=== PATIENT | female | born 1955 | race Caucasian/White ===

== ENCOUNTER 2017-11-08 10:17 | Inpatient (IN) | payer OTHER ==
[~2017-11-08] VITALS: Ht 172.7 cm; Wt 50.0 kg
[~2017-11-08 10:17] MED LIST: ATOR10; CEPH500 PO; CIPR500 PO; DIPATR PO; ESTR.75; LEVSOD150; LEVSOD75; OMEP20ER PO; PARO20; PROM25 PO; RANI150; SUCR1 PO; [UNRECOGNIZED DRUG - CODE]
[2017-11-08] MEDS ORDERED: SYNTHROID112 MCG PO (10:37)
[2017-11-08 11:13] LABS: BASOPHILS ABSOLUTE AUTO 0.05 K/mm3 (0.00-0.23); BASOPHILS PERCENT AUTO 1 % (0-2); EOSINOPHILS ABSOLUTE AUTO 0.05 K/mm3 (0.00-0.68); EOSINOPHILS PERCENT AUTO 1 % (0-6); Hemoglobin 17.4 g/dL (11.5-16.0); IMMATURE GRAN ABSOLUTE AUTO 0.02 K/mm3 (0.00-0.10); IMMATURE GRAN PERCENT AUTO 0 % (0-1); LYMPHOCYTES ABSOLUTE AUTO 2.71 K/mm3 (0.84-5.20); LYMPHOCYTES PERCENT AUTO 27 % (21-46); MONOCYTES ABSOLUTE AUTO 1.07 K/mm3 (0.16-1.47); MONOCYTES PERCENT AUTO 11 % (4-13); Mean Corpuscular HGB 33.8 pg (26.0-34.0); Mean Corpuscular HGB Conc 36.3 g/dL (31.5-36.5); Mean Corpuscular Volume 93 fL (80-100); Mean Platelet Volume 9.9 fL (9.1-12.4); NEUTROPHILS ABSOLUTE AUTO 6.13 K/mm3 (1.96-9.15); NEUTROPHILS PERCENT AUTO 61 % (41-73); Platelet Count 167 K/mm3 (150-400); RDW Coefficient Variation 12.7 % (11.7-14.2); RDW Standard Deviation 43.9 fL (35.1-46.3); Red Blood Cell Count 5.15 M/mm3 (3.80-5.20); White Blood Cell Count 10.03 K/mm3 (4.00-11.30)
[2017-11-08 11:47] LABS: Alanine Aminotransfer (ALT/SGP 24 U/L (12-78); Albumin, Blood 3.7 g/dL (3.4-5.0); Alk Phos 87 U/L (50-136); Anion Gap 10 mmol/L (6-16); Aspartate Aminotrans (AST/SGOT 37 U/L (12-37); Bilirubin, Total 0.8 mg/dL (0.1-1.0); Blood Urea Nitrogen 13 mg/dL (8-24); Bun/Creatinine Ratio 15.1 (12.0-20.0); CO2, Blood 24 mmol/L (21-32); Calcium, Blood 8.4 mg/dL (8.5-10.1); Chloride, Blood 99 mmol/L (98-108); Creatinine, Blood 0.86 mg/dL (0.40-1.00); Globulin, Blood 3.6 g/dL (2.2-4.0); Glomerular Filtration Rate >60 (60-); Glucose, Blood 115 mg/dL (70-99); Potassium, Blood 3.4 mmol/L (3.5-5.5); Sodium, Blood 133 mmol/L (136-145); Total Protein, Blood 7.3 g/dL (6.4-8.2)
[2017-11-08 11:55] LABS: Troponin I 0.907 ng/mL (0.000-0.040)
[2017-11-08] MEDS ORDERED: Omeprazole20 M1 PO (13:26)
[2017-11-08 13:45] LABS: International Normalized Ratio 1.04; Prothrombin Time Results 10.8 Sec (9.7-11.5)
[2017-11-08 14:07] LABS: CHOL/HDL RATIO 6.2; Cholesterol 236 mg/dL (50-200); HDL Cholesterol 38 mg/dL (>39); LDL/HDL RATIO 4.3; Low Density Lipoprotein Chol 162 mg/dL (0-110); Triglycerides 182 mg/dL (30-160); Very Low Density Lipoprot Chol 36 mg/dL (6-32)
[2017-11-08 15:36] LABS: Magnesium, Blood 1.7 mg/dL (1.6-2.4)
[2017-11-08 15:40] LABS: Thyroid Stimulating Hormone 2.7 uIU/mL (0.360-4.800)
[2017-11-09 02:41] LABS: BASOPHILS PERCENT AUTO 0 % (0-2); EOSINOPHILS PERCENT AUTO 0 % (0-6); Hematocrit 41.5 % (33.0-51.0); Hemoglobin 14.8 g/dL (11.5-16.0); IMMATURE GRAN ABSOLUTE AUTO 0.02 K/mm3 (0.00-0.10); IMMATURE GRAN PERCENT AUTO 0 % (0-1); LYMPHOCYTES ABSOLUTE AUTO 0.86 K/mm3 (0.84-5.20); LYMPHOCYTES PERCENT AUTO 11 % (21-46); MONOCYTES ABSOLUTE AUTO 0.13 K/mm3 (0.16-1.47); MONOCYTES PERCENT AUTO 2 % (4-13); Mean Corpuscular HGB 33.7 pg (26.0-34.0); Mean Corpuscular HGB Conc 35.7 g/dL (31.5-36.5); Mean Corpuscular Volume 95 fL (80-100); Mean Platelet Volume 10.1 fL (9.1-12.4); NEUTROPHILS ABSOLUTE AUTO 6.81 K/mm3 (1.96-9.15); NEUTROPHILS PERCENT AUTO 87 % (41-73); Platelet Count 153 K/mm3 (150-400); RDW Coefficient Variation 13.2 % (11.7-14.2); RDW Standard Deviation 46.3 fL (35.1-46.3); Red Blood Cell Count 4.39 M/mm3 (3.80-5.20); White Blood Cell Count 7.82 K/mm3 (4.00-11.30)
[2017-11-09 02:56] LABS: Albumin, Blood 3.2 g/dL (3.4-5.0); Anion Gap 7 mmol/L (6-16); Blood Urea Nitrogen 14 mg/dL (8-24); Bun/Creatinine Ratio 18.2 (12.0-20.0); CO2, Blood 20 mmol/L (21-32); Calcium, Blood 7.7 mg/dL (8.5-10.1); Chloride, Blood 109 mmol/L (98-108); Creatinine, Blood 0.77 mg/dL (0.40-1.00); Glomerular Filtration Rate >60 (60-); Glucose, Blood 155 mg/dL (70-99); Phosphorus, Blood 2.7 mg/dL (2.5-4.9); Potassium, Blood 5.1 mmol/L (3.5-5.5); Sodium, Blood 136 mmol/L (136-145)
[2017-11-10 04:43] LABS: Anion Gap 10 mmol/L (6-16); Blood Urea Nitrogen 19 mg/dL (8-24); Bun/Creatinine Ratio 23.1 (12.0-20.0); CO2, Blood 25 mmol/L (21-32); Calcium, Blood 8.4 mg/dL (8.5-10.1); Chloride, Blood 102 mmol/L (98-108); Creatinine, Blood 0.82 mg/dL (0.40-1.00); Glomerular Filtration Rate >60 (60-); Glucose, Blood 148 mg/dL (70-99); Potassium, Blood 4.5 mmol/L (3.5-5.5); Sodium, Blood 137 mmol/L (136-145)
[2017-11-10] MEDS ORDERED: ASPI81CH PO (11:46)
[2017-11-10] MEDS ORDERED: ATOR80 PO (11:47)
[2017-11-10] MEDS ORDERED: CLOP75 PO (11:48)
[2017-11-10] MEDS ORDERED: GUAIFENESIN ER600 MG PO (11:49)
[2017-11-10] MEDS ORDERED: LOSA25 PO (11:49)
[2017-11-10] MEDS ORDERED: NEBI5 PO (11:50)
[2017-11-10] MEDS ORDERED: TORSE20 PO (11:50)
[2017-11-10] MEDS ORDERED: COMBIVENT RESPIM4 GM INH (11:51)
[2017-11-10] MEDS ORDERED: PRED20 PO (11:52)
== END 2017-11-10 12:37 | disposition home or self-care (01) | DRG 247 ==
LOC: ER 10:17 → PCU 10:18
PROVIDERS: Emergency Medicine; Family Medicine; Internal Medicine; Internal Medicine Cardiovascular Disease
PROC: 4A023N7 Measurement of Cardiac Sampling and Pressure, Left Heart, Percutaneous Approach (ICD-10-PCS; principal; 2017-11-08)
PROC: 027135Z Dilation of Coronary Artery, Two Arteries with Two Drug-eluting Intraluminal Devices, Percutaneous Approach (ICD-10-PCS; 2017-11-08)
PROC: B211YZZ Fluoroscopy of Multiple Coronary Arteries using Other Contrast (ICD-10-PCS; 2017-11-08)
DX: I21.4 Non-ST elevation (NSTEMI) myocardial infarction (principal); J44.1 Chronic obstructive pulmonary disease with (acute) exacerbation; E87.1 Hypo-osmolality and hyponatremia; I51.81 Takotsubo syndrome; I25.110 Atherosclerotic heart disease of native coronary artery with unstable angina pectoris; I10 Essential (primary) hypertension; E03.9 Hypothyroidism, unspecified; F17.210 Nicotine dependence, cigarettes, uncomplicated; E87.6 Hypokalemia; E78.5 Hyperlipidemia, unspecified; I73.9 Peripheral vascular disease, unspecified
CPT/HCPCS: 36415; 71045; 80048; 80053; 80061; 80069; 83735; 83880; 84443; 84484; 85025; 85347; 85610; 85730; 86850; 86900; 86901; 92978; 93005; 93010; 93458; 94640; 94760; 99152; 99153; 99285; C1725; C1753; C1769; C1894; C8929; C9600; J0456; J0696; J1644; J2250; J2270; J2930; J3010; J3475; J7030; J7050; Q9957; Q9967

== ENCOUNTER 2017-11-12 17:29 | Emergency (ER) | payer OTHER ==
[~2017-11-12] VITALS: Ht 172.7 cm; Wt 49.0 kg
[~2017-11-12 17:29] MED LIST changes: +ASPI81CH PO; +ATOR80 PO; +CLOP75 PO; +COMBIVENT RESPIM4 GM INH; +GUAIFENESIN ER600 MG PO; +LOSA25 PO; +NEBI5 PO; +Omeprazole20 M1 PO; +PRED20 PO; +SYNTHROID112 MCG PO; +TORSE20 PO
== END 2017-11-12 18:02 | disposition home or self-care (01) ==
LOC: ER 17:29
DX: S50.12XA Contusion of left forearm, initial encounter (principal); S50.11XA Contusion of right forearm, initial encounter; X58.XXXA Exposure to other specified factors, initial encounter; Z79.899 Other long term (current) drug therapy; Z79.82 Long term (current) use of aspirin; Z79.52 Long term (current) use of systemic steroids; I25.10 Atherosclerotic heart disease of native coronary artery without angina pectoris; F17.200 Nicotine dependence, unspecified, uncomplicated

== ENCOUNTER 2018-03-07 17:17 | Inpatient (IN) | payer OTHER ==
[~2018-03-07] VITALS: Ht 172.7 cm; Wt 46.1 kg
[2018-03-07 17:44] LABS: BASOPHILS ABSOLUTE AUTO 0.02 K/mm3 (0.00-0.23); BASOPHILS PERCENT AUTO 0 % (0-2); EOSINOPHILS PERCENT AUTO 0 % (0-6); Hematocrit 38.2 % (33.0-51.0); Hemoglobin 13.5 g/dL (11.5-16.0); IMMATURE GRAN ABSOLUTE AUTO 0.09 K/mm3 (0.00-0.10); IMMATURE GRAN PERCENT AUTO 0 % (0-1); LYMPHOCYTES ABSOLUTE AUTO 0.99 K/mm3 (0.84-5.20); LYMPHOCYTES PERCENT AUTO 4 % (21-46); MONOCYTES ABSOLUTE AUTO 1.81 K/mm3 (0.16-1.47); MONOCYTES PERCENT AUTO 8 % (4-13); Mean Corpuscular HGB 34.3 pg (26.0-34.0); Mean Corpuscular HGB Conc 35.3 g/dL (31.5-36.5); Mean Corpuscular Volume 97 fL (80-100); NEUTROPHILS ABSOLUTE AUTO 19.51 K/mm3 (1.96-9.15); NEUTROPHILS PERCENT AUTO 87 % (41-73); RDW Coefficient Variation 12.3 % (11.7-14.2); RDW Standard Deviation 44.1 fL (35.1-46.3); Red Blood Cell Count 3.94 M/mm3 (3.80-5.20); White Blood Cell Count 22.42 K/mm3 (4.00-11.30)
[2018-03-07 17:46] LABS: Mean Platelet Volume 10.1 fL (9.1-12.4); Platelet Count 196 K/mm3 (150-400)
[2018-03-07 18:26] LABS: Alanine Aminotransfer (ALT/SGP 21 U/L (12-78); Albumin, Blood 3.6 g/dL (3.4-5.0); Albumin/Globulin Ratio 1.2 (0.8-1.8); Alk Phos 94 U/L (50-136); Anion Gap 14 mmol/L (6-16); Aspartate Aminotrans (AST/SGOT 26 U/L (12-37); Bilirubin, Total 0.9 mg/dL (0.1-1.0); Blood Urea Nitrogen 10 mg/dL (8-24); Bun/Creatinine Ratio 12.6 (12.0-20.0); CO2, Blood 21 mmol/L (21-32); Calcium, Blood 8.4 mg/dL (8.5-10.1); Chloride, Blood 103 mmol/L (98-108); Globulin, Blood 3.1 g/dL (2.2-4.0); Glomerular Filtration Rate >60 (60-); Glucose, Blood 147 mg/dL (70-99); Salicylate 4.1 mg/dL (2.8-20.0); Sodium, Blood 138 mmol/L (136-145); Total Protein, Blood 6.7 g/dL (6.4-8.2); Troponin I 0.092 ng/mL (0.000-0.040)
[2018-03-07 18:41] LABS: Ethanol (Alcohol), Blood, Med <3 mg/dL
[2018-03-07 18:42] LABS: Acetaminophen, Random <2.0 ug/mL (10.0-30.0)
[2018-03-07 19:58] LABS: Source, Urine Catheter
[2018-03-07 20:00] LABS: Bilirubin, Urine Neg (Neg); Blood, Urine 2+ (Neg); Glucose Qualitative, Urine 2+ (Neg); Ketones, Urine 1+ (Neg); Leukocyte Esterase, Urine Neg (Neg); Nitrite, Urine Neg (Neg); Protein, Urine 2+ (Neg); Urobilinogen, Urine NORM (Normal)
[2018-03-07 20:03] LABS: Appearance, Urine Hazy (Clear); Color, Urine Yellow (P-Yellow)
[2018-03-07 20:11] LABS: U Amphetamine Screen Not Detected; U Barbituate Screen Not Detected; U Benzodiazapine Screen Not Detected; U Buprenorphine Screen Not Detected; U Cannabinoids Screen DETECTED; U Cocaine Screen Not Detected; U Methadone Screen Not Detected; U Methamphetamine Screen Not Detected; U Opiates Screen Not Detected; U Oxycodone Screen Not Detected; U Phencyclidine Screen Not Detected; U Propoxyphene Screen Not Detected
[2018-03-07 20:16] LABS: Bacteria Not Seen /hpf; Mucus Light (0-Heavy); Squamous Epithelial Cells Few /hpf (Few); White Blood Cells, Urine 0-2 /hpf (0-5)
[2018-03-07] MEDS ORDERED: METO25 PO (20:25)
[2018-03-08 02:21] LABS: Hematocrit 31.9 % (33.0-51.0); Hemoglobin 11.3 g/dL (11.5-16.0); Mean Corpuscular HGB Conc 35.4 g/dL (31.5-36.5); Mean Corpuscular Volume 96 fL (80-100); Mean Platelet Volume 10.2 fL (9.1-12.4); Platelet Count 155 K/mm3 (150-400); RDW Coefficient Variation 12.5 % (11.7-14.2); RDW Standard Deviation 43.7 fL (35.1-46.3); Red Blood Cell Count 3.32 M/mm3 (3.80-5.20); White Blood Cell Count 15.13 K/mm3 (4.00-11.30)
[2018-03-08 03:31] LABS: Alanine Aminotransfer (ALT/SGP 18 U/L (12-78); Alk Phos 75 U/L (50-136); Anion Gap 11 mmol/L (6-16); Aspartate Aminotrans (AST/SGOT 33 U/L (12-37); Bilirubin, Total 0.5 mg/dL (0.1-1.0); Blood Urea Nitrogen 11 mg/dL (8-24); Bun/Creatinine Ratio 14.9 (12.0-20.0); CO2, Blood 22 mmol/L (21-32); Calcium, Blood 7.6 mg/dL (8.5-10.1); Chloride, Blood 106 mmol/L (98-108); Creatinine, Blood 0.74 mg/dL (0.40-1.00); Globulin, Blood 2.9 g/dL (2.2-4.0); Glomerular Filtration Rate >60 (60-); Glucose, Blood 120 mg/dL (70-99); Potassium, Blood 4.1 mmol/L (3.5-5.5); Sodium, Blood 139 mmol/L (136-145); Total Protein, Blood 5.9 g/dL (6.4-8.2)
[2018-03-08 03:33] LABS: Troponin I 0.113 ng/mL (0.000-0.040)
[2018-03-08 03:46] LABS: Creatine Kinase MB 4.5 ng/mL (0.0-3.6); Creatine Kinase MB Index 0.5 (0.0-4.0)
[2018-03-08 10:28] LABS: Troponin I 0.096 ng/mL (0.000-0.040)
[2018-03-08 11:05] LABS: Creatine Kinase MB 5.5 ng/mL (0.0-3.6); Creatine Kinase MB Index 0.4 (0.0-4.0)
[2018-03-09 05:29] LABS: BASOPHILS ABSOLUTE AUTO 0.04 K/mm3 (0.00-0.23); BASOPHILS PERCENT AUTO 0 % (0-2); EOSINOPHILS ABSOLUTE AUTO 0.02 K/mm3 (0.00-0.68); EOSINOPHILS PERCENT AUTO 0 % (0-6); Hematocrit 28.4 % (33.0-51.0); Hemoglobin 10.1 g/dL (11.5-16.0); IMMATURE GRAN ABSOLUTE AUTO 0.07 K/mm3 (0.00-0.10); IMMATURE GRAN PERCENT AUTO 0 % (0-1); LYMPHOCYTES ABSOLUTE AUTO 1.43 K/mm3 (0.84-5.20); LYMPHOCYTES PERCENT AUTO 9 % (21-46); MONOCYTES ABSOLUTE AUTO 1.74 K/mm3 (0.16-1.47); MONOCYTES PERCENT AUTO 11 % (4-13); Mean Corpuscular HGB 34.6 pg (26.0-34.0); Mean Corpuscular HGB Conc 35.6 g/dL (31.5-36.5); Mean Corpuscular Volume 97 fL (80-100); Mean Platelet Volume 9.9 fL (9.1-12.4); NEUTROPHILS ABSOLUTE AUTO 13.32 K/mm3 (1.96-9.15); NEUTROPHILS PERCENT AUTO 80 % (41-73); Platelet Count 133 K/mm3 (150-400); RDW Coefficient Variation 12.5 % (11.7-14.2); RDW Standard Deviation 44.5 fL (35.1-46.3); Red Blood Cell Count 2.92 M/mm3 (3.80-5.20); White Blood Cell Count 16.62 K/mm3 (4.00-11.30)
[2018-03-09 05:53] LABS: Albumin, Blood 2.8 g/dL (3.4-5.0); Anion Gap 10 mmol/L (6-16); Blood Urea Nitrogen 10 mg/dL (8-24); Bun/Creatinine Ratio 17.7 (12.0-20.0); CO2, Blood 24 mmol/L (21-32); Calcium, Blood 7.3 mg/dL (8.5-10.1); Chloride, Blood 104 mmol/L (98-108); Creatinine, Blood 0.57 mg/dL (0.40-1.00); Glomerular Filtration Rate >60 (60-); Glucose, Blood 94 mg/dL (70-99); Phosphorus, Blood 2.2 mg/dL (2.5-4.9); Potassium, Blood 3.8 mmol/L (3.5-5.5); Sodium, Blood 138 mmol/L (136-145)
[2018-03-09 06:17] LABS: CPK Creatine Kinase 1222 U/L (26-193)
[2018-03-09 16:00] LABS: PCO2 Arterial 33.3 mmHg (35-45); pH Blood Arterial 7.45 (7.35-7.45)
[2018-03-09 16:03] LABS: PO2 Arterial 46.2 mmHg (80-100)
[2018-03-09 17:49] LABS: PCO2 Arterial 33 mmHg (35-45); PO2 Arterial 78 mmHg (80-100); pH Blood Arterial 7.46 (7.35-7.45)
[2018-03-10 04:51] LABS: BASOPHILS ABSOLUTE AUTO 0.03 K/mm3 (0.00-0.23); BASOPHILS PERCENT AUTO 0 % (0-2); EOSINOPHILS ABSOLUTE AUTO 0.02 K/mm3 (0.00-0.68); EOSINOPHILS PERCENT AUTO 0 % (0-6); Hematocrit 28.2 % (33.0-51.0); Hemoglobin 9.9 g/dL (11.5-16.0); IMMATURE GRAN ABSOLUTE AUTO 0.09 K/mm3 (0.00-0.10); IMMATURE GRAN PERCENT AUTO 1 % (0-1); LYMPHOCYTES ABSOLUTE AUTO 1.13 K/mm3 (0.84-5.20); LYMPHOCYTES PERCENT AUTO 8 % (21-46); MONOCYTES ABSOLUTE AUTO 1.53 K/mm3 (0.16-1.47); MONOCYTES PERCENT AUTO 10 % (4-13); Mean Corpuscular HGB 34.1 pg (26.0-34.0); Mean Corpuscular HGB Conc 35.1 g/dL (31.5-36.5); Mean Corpuscular Volume 97 fL (80-100); Mean Platelet Volume 10.7 fL (9.1-12.4); NEUTROPHILS ABSOLUTE AUTO 12.33 K/mm3 (1.96-9.15); NEUTROPHILS PERCENT AUTO 82 % (41-73); Platelet Count 125 K/mm3 (150-400); RDW Coefficient Variation 12.3 % (11.7-14.2); White Blood Cell Count 15.13 K/mm3 (4.00-11.30)
[2018-03-10 05:21] LABS: Albumin, Blood 2.5 g/dL (3.4-5.0); Anion Gap 11 mmol/L (6-16); Blood Urea Nitrogen 10 mg/dL (8-24); Bun/Creatinine Ratio 15.8 (12.0-20.0); CO2, Blood 25 mmol/L (21-32); Calcium, Blood 7.5 mg/dL (8.5-10.1); Chloride, Blood 100 mmol/L (98-108); Creatinine, Blood 0.63 mg/dL (0.40-1.00); Glomerular Filtration Rate >60 (60-); Glucose, Blood 102 mg/dL (70-99); Potassium, Blood 3.4 mmol/L (3.5-5.5); Sodium, Blood 136 mmol/L (136-145)
[2018-03-10 05:22] LABS: Percent Saturation 11.7 % (15.0-50.0)
[2018-03-10 05:50] LABS: CPK Creatine Kinase 1159 U/L (26-193)
[2018-03-11 04:29] LABS: BASOPHILS ABSOLUTE AUTO 0.02 K/mm3 (0.00-0.23); BASOPHILS PERCENT AUTO 0 % (0-2); EOSINOPHILS ABSOLUTE AUTO 0.02 K/mm3 (0.00-0.68); EOSINOPHILS PERCENT AUTO 0 % (0-6); Hematocrit 24.7 % (33.0-51.0); Hemoglobin 8.7 g/dL (11.5-16.0); IMMATURE GRAN ABSOLUTE AUTO 0.06 K/mm3 (0.00-0.10); IMMATURE GRAN PERCENT AUTO 0 % (0-1); LYMPHOCYTES ABSOLUTE AUTO 0.75 K/mm3 (0.84-5.20); LYMPHOCYTES PERCENT AUTO 6 % (21-46); MONOCYTES ABSOLUTE AUTO 1.23 K/mm3 (0.16-1.47); MONOCYTES PERCENT AUTO 9 % (4-13); Mean Corpuscular HGB 33.1 pg (26.0-34.0); Mean Corpuscular HGB Conc 35.2 g/dL (31.5-36.5); Mean Platelet Volume 10.7 fL (9.1-12.4); NEUTROPHILS ABSOLUTE AUTO 11.29 K/mm3 (1.96-9.15); NEUTROPHILS PERCENT AUTO 85 % (41-73); Platelet Count 141 K/mm3 (150-400); RDW Coefficient Variation 12.1 % (11.7-14.2); RDW Standard Deviation 41.6 fL (35.1-46.3); Red Blood Cell Count 2.63 M/mm3 (3.80-5.20); White Blood Cell Count 13.37 K/mm3 (4.00-11.30)
[2018-03-11 04:30] LABS: Mean Corpuscular Volume 94 fL (80-100)
[2018-03-11 04:47] LABS: Albumin, Blood 2.2 g/dL (3.4-5.0); Anion Gap 9 mmol/L (6-16); Blood Urea Nitrogen 9 mg/dL (8-24); Bun/Creatinine Ratio 14.8 (12.0-20.0); CO2, Blood 29 mmol/L (21-32); Calcium, Blood 7.2 mg/dL (8.5-10.1); Chloride, Blood 94 mmol/L (98-108); Creatinine, Blood 0.61 mg/dL (0.40-1.00); Glomerular Filtration Rate >60 (60-); Glucose, Blood 119 mg/dL (70-99); Phosphorus, Blood 1.4 mg/dL (2.5-4.9); Potassium, Blood 3.2 mmol/L (3.5-5.5); Sodium, Blood 132 mmol/L (136-145)
[2018-03-11 17:45] LABS: Vancomycin, Trough 2.4 ug/mL (5.0-10.0)
[2018-03-12 03:51] LABS: BASOPHILS ABSOLUTE AUTO 0.02 K/mm3 (0.00-0.23); BASOPHILS PERCENT AUTO 0 % (0-2); EOSINOPHILS ABSOLUTE AUTO 0.09 K/mm3 (0.00-0.68); EOSINOPHILS PERCENT AUTO 1 % (0-6); Hematocrit 24.6 % (33.0-51.0); Hemoglobin 8.6 g/dL (11.5-16.0); IMMATURE GRAN ABSOLUTE AUTO 0.05 K/mm3 (0.00-0.10); IMMATURE GRAN PERCENT AUTO 0 % (0-1); LYMPHOCYTES PERCENT AUTO 7 % (21-46); MONOCYTES ABSOLUTE AUTO 0.88 K/mm3 (0.16-1.47); MONOCYTES PERCENT AUTO 7 % (4-13); Mean Corpuscular HGB 33.3 pg (26.0-34.0); Mean Corpuscular Volume 95 fL (80-100); Mean Platelet Volume 10.3 fL (9.1-12.4); NEUTROPHILS ABSOLUTE AUTO 11.36 K/mm3 (1.96-9.15); NEUTROPHILS PERCENT AUTO 85 % (41-73); Platelet Count 156 K/mm3 (150-400); RDW Coefficient Variation 12.3 % (11.7-14.2); RDW Standard Deviation 42.7 fL (35.1-46.3); Red Blood Cell Count 2.58 M/mm3 (3.80-5.20)
[2018-03-12 04:13] LABS: Albumin, Blood 2.2 g/dL (3.4-5.0); Anion Gap 9 mmol/L (6-16); Blood Urea Nitrogen 11 mg/dL (8-24); CO2, Blood 29 mmol/L (21-32); Calcium, Blood 7.5 mg/dL (8.5-10.1); Chloride, Blood 94 mmol/L (98-108); Creatinine, Blood 0.58 mg/dL (0.40-1.00); Glomerular Filtration Rate >60 (60-); Glucose, Blood 155 mg/dL (70-99); Phosphorus, Blood 1.7 mg/dL (2.5-4.9); Potassium, Blood 3.7 mmol/L (3.5-5.5); Sodium, Blood 132 mmol/L (136-145)
[2018-03-12 18:49] LABS: Vancomycin, Trough 7.6 ug/mL (5.0-10.0)
[2018-03-13 04:30] LABS: BASOPHILS ABSOLUTE AUTO 0.05 K/mm3 (0.00-0.23); BASOPHILS PERCENT AUTO 0 % (0-2); EOSINOPHILS ABSOLUTE AUTO 0.35 K/mm3 (0.00-0.68); EOSINOPHILS PERCENT AUTO 3 % (0-6); Hematocrit 24.9 % (33.0-51.0); Hemoglobin 8.5 g/dL (11.5-16.0); IMMATURE GRAN ABSOLUTE AUTO 0.07 K/mm3 (0.00-0.10); IMMATURE GRAN PERCENT AUTO 1 % (0-1); LYMPHOCYTES ABSOLUTE AUTO 1.48 K/mm3 (0.84-5.20); LYMPHOCYTES PERCENT AUTO 11 % (21-46); MONOCYTES PERCENT AUTO 9 % (4-13); Mean Corpuscular HGB 33.2 pg (26.0-34.0); Mean Corpuscular HGB Conc 34.1 g/dL (31.5-36.5); Mean Corpuscular Volume 97 fL (80-100); NEUTROPHILS ABSOLUTE AUTO 10.76 K/mm3 (1.96-9.15); NEUTROPHILS PERCENT AUTO 77 % (41-73); Platelet Count 251 K/mm3 (150-400); RDW Coefficient Variation 14.3 % (11.7-14.2); RDW Standard Deviation 48.6 fL (35.1-46.3); Red Blood Cell Count 2.56 M/mm3 (3.80-5.20); White Blood Cell Count 13.91 K/mm3 (4.00-11.30)
[2018-03-13 05:57] LABS: Albumin, Blood 2.1 g/dL (3.4-5.0); Anion Gap 8 mmol/L (6-16); Blood Urea Nitrogen 12 mg/dL (8-24); Bun/Creatinine Ratio 18.5 (12.0-20.0); CO2, Blood 30 mmol/L (21-32); Calcium, Blood 7.5 mg/dL (8.5-10.1); Chloride, Blood 97 mmol/L (98-108); Creatinine, Blood 0.65 mg/dL (0.40-1.00); Glomerular Filtration Rate >60 (60-); Glucose, Blood 107 mg/dL (70-99); Phosphorus, Blood 2.4 mg/dL (2.5-4.9); Potassium, Blood 3.9 mmol/L (3.5-5.5); Sodium, Blood 135 mmol/L (136-145)
[2018-03-13 18:41] LABS: Vancomycin, Trough 12.9 ug/mL (5.0-10.0)
[2018-03-14 05:20] LABS: BASOPHILS ABSOLUTE AUTO 0.04 K/mm3 (0.00-0.23); BASOPHILS PERCENT AUTO 0 % (0-2); EOSINOPHILS ABSOLUTE AUTO 0.54 K/mm3 (0.00-0.68); EOSINOPHILS PERCENT AUTO 4 % (0-6); Hematocrit 25.1 % (33.0-51.0); Hemoglobin 8.6 g/dL (11.5-16.0); IMMATURE GRAN PERCENT AUTO 1 % (0-1); LYMPHOCYTES ABSOLUTE AUTO 1.04 K/mm3 (0.84-5.20); LYMPHOCYTES PERCENT AUTO 8 % (21-46); MONOCYTES PERCENT AUTO 10 % (4-13); Mean Corpuscular HGB 34.1 pg (26.0-34.0); Mean Corpuscular HGB Conc 34.3 g/dL (31.5-36.5); Mean Platelet Volume 9.8 fL (9.1-12.4); NEUTROPHILS ABSOLUTE AUTO 9.44 K/mm3 (1.96-9.15); NEUTROPHILS PERCENT AUTO 76 % (41-73); Platelet Count 243 K/mm3 (150-400); RDW Coefficient Variation 12.9 % (11.7-14.2); RDW Standard Deviation 46.2 fL (35.1-46.3); Red Blood Cell Count 2.52 M/mm3 (3.80-5.20); White Blood Cell Count 12.36 K/mm3 (4.00-11.30)
[2018-03-14 05:21] LABS: Mean Corpuscular Volume 100 fL (80-100)
[2018-03-14 05:38] LABS: Albumin, Blood 2.2 g/dL (3.4-5.0); Anion Gap 6 mmol/L (6-16); Blood Urea Nitrogen 11 mg/dL (8-24); Bun/Creatinine Ratio 16.6 (12.0-20.0); CO2, Blood 31 mmol/L (21-32); Calcium, Blood 7.8 mg/dL (8.5-10.1); Chloride, Blood 97 mmol/L (98-108); Creatinine, Blood 0.66 mg/dL (0.40-1.00); Glomerular Filtration Rate >60 (60-); Glucose, Blood 128 mg/dL (70-99); Phosphorus, Blood 3.2 mg/dL (2.5-4.9); Potassium, Blood 4.6 mmol/L (3.5-5.5); Sodium, Blood 134 mmol/L (136-145)
[2018-03-15 04:44] LABS: BASOPHILS ABSOLUTE AUTO 0.08 K/mm3 (0.00-0.23); BASOPHILS PERCENT AUTO 1 % (0-2); EOSINOPHILS ABSOLUTE AUTO 0.72 K/mm3 (0.00-0.68); EOSINOPHILS PERCENT AUTO 4 % (0-6); Hematocrit 28.5 % (33.0-51.0); Hemoglobin 9.6 g/dL (11.5-16.0); Mean Corpuscular HGB 33.9 pg (26.0-34.0); Mean Corpuscular HGB Conc 33.7 g/dL (31.5-36.5); Mean Corpuscular Volume 101 fL (80-100); Mean Platelet Volume 9.7 fL (9.1-12.4); NRBC ABSOLUTE 0.02 K/mm3 (0.00-0.02); NRBC Auto 0.1 /100 WBC (0.0-0.2); Platelet Count 365 K/mm3 (150-400); RDW Coefficient Variation 13.2 % (11.7-14.2); RDW Standard Deviation 46.5 fL (35.1-46.3); Red Blood Cell Count 2.83 M/mm3 (3.80-5.20); White Blood Cell Count 16.76 K/mm3 (4.00-11.30)
[2018-03-15 04:46] LABS: IMMATURE GRAN ABSOLUTE AUTO 0.16 K/mm3 (0.00-0.10); IMMATURE GRAN PERCENT AUTO 1 % (0-1); LYMPHOCYTES ABSOLUTE AUTO 2.13 K/mm3 (0.84-5.20); LYMPHOCYTES PERCENT AUTO 13 % (21-46); MONOCYTES ABSOLUTE AUTO 1.82 K/mm3 (0.16-1.47); MONOCYTES PERCENT AUTO 11 % (4-13); NEUTROPHILS ABSOLUTE AUTO 11.85 K/mm3 (1.96-9.15); NEUTROPHILS PERCENT AUTO 71 % (41-73)
[2018-03-15 05:06] LABS: Albumin, Blood 2.6 g/dL (3.4-5.0); Anion Gap 9 mmol/L (6-16); Blood Urea Nitrogen 12 mg/dL (8-24); Bun/Creatinine Ratio 18.9 (12.0-20.0); CO2, Blood 28 mmol/L (21-32); Calcium, Blood 8.4 mg/dL (8.5-10.1); Chloride, Blood 96 mmol/L (98-108); Creatinine, Blood 0.64 mg/dL (0.40-1.00); Glomerular Filtration Rate >60 (60-); Glucose, Blood 106 mg/dL (70-99); Phosphorus, Blood 3.9 mg/dL (2.5-4.9); Potassium, Blood 4.1 mmol/L (3.5-5.5); Sodium, Blood 133 mmol/L (136-145)
[2018-03-15 17:40] LABS: Vancomycin, Trough 17.9 ug/mL (5.0-10.0)
[2018-03-16 05:25] LABS: Hematocrit 26.5 % (33.0-51.0); Mean Corpuscular HGB 34.7 pg (26.0-34.0); Mean Corpuscular Volume 102 fL (80-100); Mean Platelet Volume 9.5 fL (9.1-12.4); NRBC ABSOLUTE 0.02 K/mm3 (0.00-0.02); NRBC Auto 0.2 /100 WBC (0.0-0.2); Platelet Count 368 K/mm3 (150-400); RDW Coefficient Variation 14.4 % (11.7-14.2); RDW Standard Deviation 48.7 fL (35.1-46.3); Red Blood Cell Count 2.59 M/mm3 (3.80-5.20); White Blood Cell Count 12.66 K/mm3 (4.00-11.30)
[2018-03-16 05:42] LABS: Albumin, Blood 2.4 g/dL (3.4-5.0); Anion Gap 8 mmol/L (6-16); Blood Urea Nitrogen 14 mg/dL (8-24); CO2, Blood 29 mmol/L (21-32); Chloride, Blood 100 mmol/L (98-108); Glomerular Filtration Rate >60 (60-); Glucose, Blood 96 mg/dL (70-99); Phosphorus, Blood 4.4 mg/dL (2.5-4.9); Potassium, Blood 4.1 mmol/L (3.5-5.5); Sodium, Blood 137 mmol/L (136-145)
[2018-03-16 05:51] LABS: BASOPHILS PERCENT MAN 0 % (0-2); EOSINOPHILS ABSOLUTE MAN 0.75 K/mm3 (0.00-0.68); EOSINOPHILS PERCENT MAN 6 % (0-6); LYMPHOCYTES ABSOLUTE MAN 1.51 K/mm3 (0.84-5.20); LYMPHOCYTES PERCENT MAN 12 % (21-46); MONOCYTES ABSOLUTE MAN 0.88 K/mm3 (0.16-1.47); MONOCYTES PERCENT MAN 7 % (4-13); NEUTROPHILS ABSOLUTE MAN 9.49 K/mm3 (1.96-9.15); SEG NEUTROPHILS PERCENT MAN 75 % (41-73); TOTAL CELLS COUNTED 100
[2018-03-18 05:10] LABS: BASOPHILS ABSOLUTE AUTO 0.13 K/mm3 (0.00-0.23); BASOPHILS PERCENT AUTO 1 % (0-2); EOSINOPHILS ABSOLUTE AUTO 0.55 K/mm3 (0.00-0.68); EOSINOPHILS PERCENT AUTO 4 % (0-6); Hematocrit 30.6 % (33.0-51.0); Hemoglobin 10.2 g/dL (11.5-16.0); IMMATURE GRAN ABSOLUTE AUTO 0.23 K/mm3 (0.00-0.10); IMMATURE GRAN PERCENT AUTO 2 % (0-1); LYMPHOCYTES ABSOLUTE AUTO 1.82 K/mm3 (0.84-5.20); LYMPHOCYTES PERCENT AUTO 13 % (21-46); MONOCYTES ABSOLUTE AUTO 1.53 K/mm3 (0.16-1.47); MONOCYTES PERCENT AUTO 11 % (4-13); Mean Corpuscular HGB 34.2 pg (26.0-34.0); Mean Corpuscular HGB Conc 33.3 g/dL (31.5-36.5); Mean Corpuscular Volume 103 fL (80-100); Mean Platelet Volume 9.1 fL (9.1-12.4); NEUTROPHILS ABSOLUTE AUTO 9.31 K/mm3 (1.96-9.15); NEUTROPHILS PERCENT AUTO 69 % (41-73); Platelet Count 464 K/mm3 (150-400); RDW Coefficient Variation 15.9 % (11.7-14.2); RDW Standard Deviation 54.2 fL (35.1-46.3); Red Blood Cell Count 2.98 M/mm3 (3.80-5.20); White Blood Cell Count 13.57 K/mm3 (4.00-11.30)
[2018-03-18 05:38] LABS: Anion Gap 8 mmol/L (6-16); Blood Urea Nitrogen 13 mg/dL (8-24); Bun/Creatinine Ratio 16.6 (12.0-20.0); CO2, Blood 27 mmol/L (21-32); Calcium, Blood 8.1 mg/dL (8.5-10.1); Chloride, Blood 99 mmol/L (98-108); Creatinine, Blood 0.78 mg/dL (0.40-1.00); Glomerular Filtration Rate >60 (60-); Glucose, Blood 88 mg/dL (70-99); Potassium, Blood 3.8 mmol/L (3.5-5.5); Sodium, Blood 134 mmol/L (136-145)
[2018-03-18 21:57] LABS: Vancomycin, Trough 13.9 ug/mL (5.0-10.0)
[2018-03-20 05:00] LABS: BASOPHILS ABSOLUTE AUTO 0.09 K/mm3 (0.00-0.23); BASOPHILS PERCENT AUTO 1 % (0-2); EOSINOPHILS ABSOLUTE AUTO 0.39 K/mm3 (0.00-0.68); EOSINOPHILS PERCENT AUTO 4 % (0-6); Hematocrit 31.2 % (33.0-51.0); Hemoglobin 10.2 g/dL (11.5-16.0); IMMATURE GRAN ABSOLUTE AUTO 0.08 K/mm3 (0.00-0.10); IMMATURE GRAN PERCENT AUTO 1 % (0-1); LYMPHOCYTES PERCENT AUTO 15 % (21-46); MONOCYTES ABSOLUTE AUTO 1.18 K/mm3 (0.16-1.47); MONOCYTES PERCENT AUTO 12 % (4-13); Mean Corpuscular HGB 34.7 pg (26.0-34.0); Mean Corpuscular HGB Conc 32.7 g/dL (31.5-36.5); Mean Platelet Volume 8.8 fL (9.1-12.4); NEUTROPHILS ABSOLUTE AUTO 6.59 K/mm3 (1.96-9.15); NEUTROPHILS PERCENT AUTO 67 % (41-73); Platelet Count 480 K/mm3 (150-400); RDW Coefficient Variation 16.1 % (11.7-14.2); RDW Standard Deviation 60.6 fL (35.1-46.3); Red Blood Cell Count 2.94 M/mm3 (3.80-5.20); White Blood Cell Count 9.83 K/mm3 (4.00-11.30)
[2018-03-20 05:01] LABS: Mean Corpuscular Volume 106 fL (80-100)
[2018-03-20 05:32] LABS: Anion Gap 8 mmol/L (6-16); Blood Urea Nitrogen 15 mg/dL (8-24); Bun/Creatinine Ratio 17.6 (12.0-20.0); CO2, Blood 28 mmol/L (21-32); Calcium, Blood 8.2 mg/dL (8.5-10.1); Chloride, Blood 98 mmol/L (98-108); Creatinine, Blood 0.85 mg/dL (0.40-1.00); Glomerular Filtration Rate >60 (60-); Glucose, Blood 105 mg/dL (70-99); Potassium, Blood 4.1 mmol/L (3.5-5.5); Sodium, Blood 134 mmol/L (136-145)
[2018-03-20 10:50] LABS: Vancomycin, Trough 17.5 ug/mL (5.0-10.0)
[2018-03-20] MEDS ORDERED: ACET325 PO (11:55)
[2018-03-20] MEDS ORDERED: Nicotine Patch1 EAC5 TD (11:56)
[2018-03-20] MEDS ORDERED: TRAM50 PO (11:57)
[2018-03-20] MEDS ORDERED: ALBU2.5V5 NEB (11:58)
[2018-03-20] MEDS ORDERED: FAMO40 PO (11:58)
== END 2018-03-20 14:00 | DRG 956 ==
LOC: ER 17:17 → SURS 19:54 → PCU 19:54 → SURS 20:39 → PCU 03-09 15:21 → MEDS 03-13 18:00 → ENPENDDIS 03-20 07:13 → EDPENDDIS 03-20 07:13 → MEDS 03-20 14:00
PROVIDERS: Emergency Medicine; Family Medicine; Internal Medicine; Internal Medicine Critical Care Medicine; Orthopaedic Surgery
PROC: 0QS604Z Reposition Right Upper Femur with Internal Fixation Device, Open Approach (ICD-10-PCS; principal; 2018-03-09 12:30)
DX: S72.141A Displaced intertrochanteric fracture of right femur, initial encounter for closed fracture (principal); T79.1XXA Fat embolism (traumatic), initial encounter; J95.821 Acute postprocedural respiratory failure; G92 Toxic encephalopathy; E87.2 Acidosis; J81.1 Chronic pulmonary edema; R64 Cachexia; Z68.1 Body mass index [BMI] 19.9 or less, adult; E86.0 Dehydration; Z87.890 Personal history of sex reassignment; F17.210 Nicotine dependence, cigarettes, uncomplicated; E04.9 Nontoxic goiter, unspecified; I25.2 Old myocardial infarction; E03.9 Hypothyroidism, unspecified; R29.6 Repeated falls; R53.81 Other malaise; Z95.5 Presence of coronary angioplasty implant and graft; I25.10 Atherosclerotic heart disease of native coronary artery without angina pectoris; K21.9 Gastro-esophageal reflux disease without esophagitis; D72.829 Elevated white blood cell count, unspecified; D64.9 Anemia, unspecified; D69.6 Thrombocytopenia, unspecified; I10 Essential (primary) hypertension; W18.30XA Fall on same level, unspecified, initial encounter; Y92.002 Bathroom of unspecified non-institutional (private) residence as the place of occurrence of the external cause; M26.82 Posterior soft tissue impingement; E83.39 Other disorders of phosphorus metabolism; R74.8 Abnormal levels of other serum enzymes; S70.11XA Contusion of right thigh, initial encounter; J43.9 Emphysema, unspecified; I67.9 Cerebrovascular disease, unspecified; J47.9 Bronchiectasis, uncomplicated; R26.89 Other abnormalities of gait and mobility; Z79.82 Long term (current) use of aspirin
CPT/HCPCS: 36415; 36600; 51702; 70450; 71045; 71046; 71260; 73502; 80048; 80053; 80069; 80202; 81001; 82140; 82550; 82553; 82607; 82728; 82746; 82803; 83540; 83550; 83605; 83880; 84145; 84484; 85025; 85027; 87040; 87070; 87205; 93005; 93010; 93308; 93321; 94640; 94667; 94760; 94762; 96361; 96365; 96375; 96376; 97110; 97116; 97161; 97166; 97530; 97535; 99285-25; C1713; C1751; C1769; G0480; G8978; G8979; G8987; G8988; J0330; J0360; J0456; J0696; J1170; J1650; J1940; J2250; J2370; J2405; J2543; J3010; J3370; J7030; J7040; J7050; J7060; J7120; Q9967

== ENCOUNTER 2018-07-17 10:06 | Inpatient (IN) | payer OTHER ==
[~2018-07-17] VITALS: Ht 180.3 cm; Wt 54.4 kg
[~2018-07-17 10:06] MED LIST changes: +ACET325 PO; +ALBU2.5V5 NEB; +FAMO40 PO; +METO25 PO; +Nicotine Patch1 EAC5 TD; +TRAM50 PO
[2018-07-17 10:42] LABS: BASOPHILS ABSOLUTE AUTO 0.11 K/mm3 (0.00-0.23); BASOPHILS PERCENT AUTO 1 % (0-2); EOSINOPHILS ABSOLUTE AUTO 0.03 K/mm3 (0.00-0.68); EOSINOPHILS PERCENT AUTO 0 % (0-6); Hemoglobin 15.6 g/dL (11.5-16.0); IMMATURE GRAN ABSOLUTE AUTO 0.14 K/mm3 (0.00-0.10); IMMATURE GRAN PERCENT AUTO 1 % (0-1); LYMPHOCYTES ABSOLUTE AUTO 1.74 K/mm3 (0.84-5.20); LYMPHOCYTES PERCENT AUTO 12 % (21-46); MONOCYTES ABSOLUTE AUTO 0.78 K/mm3 (0.16-1.47); MONOCYTES PERCENT AUTO 6 % (4-13); Mean Corpuscular HGB 33.9 pg (26.0-34.0); Mean Corpuscular HGB Conc 33.2 g/dL (31.5-36.5); Mean Corpuscular Volume 102 fL (80-100); Mean Platelet Volume 9.4 fL (9.1-12.4); NEUTROPHILS ABSOLUTE AUTO 11.34 K/mm3 (1.96-9.15); NEUTROPHILS PERCENT AUTO 80 % (41-73); Platelet Count 253 K/mm3 (150-400); RDW Coefficient Variation 13.3 % (11.7-14.2); RDW Standard Deviation 50.7 fL (35.1-46.3); White Blood Cell Count 14.14 K/mm3 (4.00-11.30)
[2018-07-17 10:44] LABS: Alanine Aminotransfer (ALT/SGP 13 U/L (12-78); Albumin, Blood 3.7 g/dL (3.4-5.0); Alk Phos 108 U/L (50-136); Anion Gap 21 mmol/L (6-16); Aspartate Aminotrans (AST/SGOT 24 U/L (12-37); Bilirubin, Total 0.5 mg/dL (0.1-1.0); Blood Urea Nitrogen 14 mg/dL (8-24); Bun/Creatinine Ratio 14.7 (12.0-20.0); CO2, Blood 11 mmol/L (21-32); Calcium, Blood 8.4 mg/dL (8.5-10.1); Chloride, Blood 103 mmol/L (98-108); Creatinine, Blood 0.95 mg/dL (0.40-1.00); Ethanol (Alcohol), Blood, Med <3 mg/dL; Globulin, Blood 3.7 g/dL (2.2-4.0); Glomerular Filtration Rate 55 (60-); Glucose, Blood 157 mg/dL (70-99); Potassium, Blood 4.1 mmol/L (3.5-5.5); Prothrombin Time Results 10.6 Sec (9.7-11.5); Sodium, Blood 135 mmol/L (136-145); Total Protein, Blood 7.4 g/dL (6.4-8.2)
[2018-07-17 11:19] LABS: PO2 Arterial 21.9 mmHg (80-100); pH Blood Arterial 7.26 (7.35-7.45)
--- NOTE | 2018-07-17 12:55 | NUR ---
REPORT FROM DOUGLAS AGUILERA. CONFUSED, RESTRAINED PATIENT BEING ADMITTED TO ICU 6
[2018-07-17 12:56] LABS: Source, Urine Catheter
[2018-07-17 12:57] LABS: Bilirubin, Urine Neg (Neg); Blood, Urine 3+ (Neg); Glucose Qualitative, Urine Neg (Neg); Ketones, Urine 1+ (Neg); Leukocyte Esterase, Urine Neg (Neg); Nitrite, Urine Neg (Neg); Protein, Urine Neg (Neg); Specific Gravity, Urine 1.015 (1.003-1.022); Urobilinogen, Urine NORM (Normal); pH, Urine 6.5 (5.0-8.0)
[2018-07-17 13:17] LABS: Appearance, Urine Hazy (Clear); Color, Urine Yellow (P-Yellow)
[2018-07-17 13:18] LABS: Squamous Epithelial Cells Rare /hpf (Few)
[2018-07-17 13:19] LABS: Bacteria Few /hpf; White Blood Cells, Urine 0-2 /hpf (0-5)
[2018-07-17 13:19] LABS: U Amphetamine Screen Not Detected; U Barbituate Screen Not Detected; U Benzodiazapine Screen Not Detected; U Buprenorphine Screen Not Detected; U Cannabinoids Screen DETECTED; U Cocaine Screen Not Detected; U Methadone Screen Not Detected; U Methamphetamine Screen Not Detected; U Opiates Screen Not Detected; U Oxycodone Screen Not Detected; U Phencyclidine Screen Not Detected; U Propoxyphene Screen Not Detected
[2018-07-17 13:20] LABS: Mucus Light (0-Heavy)
--- NOTE | 2018-07-17 13:49 | NUR ---
CACHECTIC LYNNE, FEMALE ADMITTED TO ICU 6. NOT RESPONDING TO QUESTIONS, BUT ATTEMPTS TO PULL LINES AND TUBES. BILAT SWR AND DADA VEST ON. TEMPERATURE PANG WITH CLEAR URINE.
--- NOTE | 2018-07-17 15:41 | NUR ---
NYA Bertrand CALLED AND WILL BRING IN COPY OF CONSULTING PRACTICE MANAGER'S LICENSE
--- NOTE | 2018-07-17 16:19 | NUR ---
RECEIVED REPORT FROM BRANDI HUGHES RN, ASSUMED CARE, PATIENT IS UNABLE TO ANSWER QUESTIONS, AGITATED AND RESTLESS, UNABLE TO FOLLOW COMMANDS IN RESTRAINTS AT THIS TIME, PANG CATHETER IN PLACE, PIV IN L UA, PATIENT REMOVED PIV FROM R AC, PATIENT'S ROOM MATE/LIFE PARTNER EN ROUTE WITH POSITIVE ID, PATIENT RECEIVED BATH AND LINEN CHANGE, PATIENT HAS NS AT 150 CC/HYR INFUSING, CALL LIGHT IN REACH, WILL CONTINUE TO MONITOR.
--- NOTE | 2018-07-17 17:50 | NUR ---
SHIFT SUMMARY NOTE: PATIENT IS RESTING COMFORTABLY WITH EYES CLOSED, OPENEND EYES WHEN SIGNIFICANT OTHER WAS AT BEDSIDE, PATIENT RECEIVED 2 MG ATIVAN IV AFTER BECOMING EXTREMELY AGITATED AND PULLING HER PIVs, TRYING TO CLIMB OUT OF BED, PATIENT IN RESTRAINTS AND VEST, PANG CATHETER IN PLACE, DRAINING LARGE AMOUNTS OF CLEAR YELLOW URINE, SKIN INTACT BUT BRUISES ON BILATERAL UPPER EXTREMITIES AND DRY SKIN WITH SCRAPES AND SCABS ON BILATERAL LOWER EXTREMITIES, DR. EDEN CONSULTED, PATIENT RECEIVED KEPPRA IN ED, NO SEIZURES SINCE ADMITTED TO ICU, SIGNIFICANT OTHER AND FEMALE FRIEND AT BEDSIDE, UPDATED ON PATIENT'S CONDITION BY DR. EDEN, CALL LIGHT IN REACH, WILL CONTINUE TO MONITOR, AND GIVE REPORT TO ONCOMING [employer]AND [employer]BASS[employer]IONAL SALES.
--- NOTE | 2018-07-17 19:45 | NUR ---
ASSUMED CARE BEDSIDE REPORT RECIEVED. PT IS RESTING QUIETLY UPON ENTERING ROOM. PT AWAKENS TO VERBAL STIMULI AND QUICKLY BECOMES RESTLESS/AGITATED. PT ATTEMPTING TO PULL AT LINES/TUBES. SBW RESTRAINTS AND DADA VEST IN PLACE. PT IS ABLE TO SQUEEZE HANDS WITH EQUAL STRENGTH UPON COMMAND, BUT IS UNABLE TO SPEAK OR FOLLOW ANY OTHER DIRECTIONS. PT MOANS OUT AT TIMES. VITAL SIGNS STABLE, PT ON 2L O2 NC. HYPERTENSIVE WITH AGITATION. PANG IN PLACE WITH YELLOW OUTPUT NOTED. NO FAMILY AT BEDSIDE. NS INFUSING AT 50 ML/HR. WILL CONTINUE TO MONITOR.
[2018-07-18 03:46] LABS: Hematocrit 39.9 % (33.0-51.0); Mean Corpuscular HGB 33.8 pg (26.0-34.0); Mean Corpuscular HGB Conc 35.1 g/dL (31.5-36.5); Mean Platelet Volume 9.3 fL (9.1-12.4); Platelet Count 219 K/mm3 (150-400); RDW Coefficient Variation 13.1 % (11.7-14.2); RDW Standard Deviation 46.2 fL (35.1-46.3); Red Blood Cell Count 4.14 M/mm3 (3.80-5.20); White Blood Cell Count 13.31 K/mm3 (4.00-11.30)
[2018-07-18 03:47] LABS: Mean Corpuscular Volume 96 fL (80-100)
[2018-07-18 04:15] LABS: Alanine Aminotransfer (ALT/SGP 11 U/L (12-78); Albumin, Blood 3.4 g/dL (3.4-5.0); Albumin/Globulin Ratio 1.1 (0.8-1.8); Alk Phos 92 U/L (50-136); Anion Gap 10 mmol/L (6-16); Aspartate Aminotrans (AST/SGOT 32 U/L (12-37); Bilirubin, Total 1.1 mg/dL (0.1-1.0); Blood Urea Nitrogen 7 mg/dL (8-24); Bun/Creatinine Ratio 9.5 (12.0-20.0); CO2, Blood 20 mmol/L (21-32); CPK Creatine Kinase 459 U/L (26-193); Calcium, Blood 7.8 mg/dL (8.5-10.1); Chloride, Blood 104 mmol/L (98-108); Creatinine, Blood 0.73 mg/dL (0.40-1.00); Globulin, Blood 3.2 g/dL (2.2-4.0); Glomerular Filtration Rate >60 (60-); Glucose, Blood 78 mg/dL (70-99); Magnesium, Blood 1.9 mg/dL (1.6-2.4); Phosphorus, Blood 2.2 mg/dL (2.5-4.9); Potassium, Blood 4.4 mmol/L (3.5-5.5); Sodium, Blood 134 mmol/L (136-145); Total Protein, Blood 6.6 g/dL (6.4-8.2)
[2018-07-18 04:18] LABS: Creatine Kinase MB 3.4 ng/mL (0.0-3.6); Creatine Kinase MB Index 0.7 (0.0-4.0)
--- NOTE | 2018-07-18 05:38 | NUR ---
SHIFT SUMMARY PT IS DOING BETTER THIS MORNING. PT SLEPT THROUGHOUT MOST OF THE SHIFT, BUT WHEN AWAKENED THIS MORNING, PT IS ALERT, ORIENTED, AND COOPERATIVE. PT IS ABLE TO FOLLOW COMMANDS AT THIS TIME. PT REMOVED FROM SBW RESTRAINTS AND DADA VEST AT THIS TIME. BED ALARM IN PLACE, SEIZURE PADS REMAIN IN PLACE ON BED RAILS. VITAL SIGNS HAVE REMAINED STABLE, PT ON 2L O2 NC. NS INFUSING AT 50 ML/HR. PANG REMAINS IN PLACE WITH GOOD URINE OUTPUT THIS SHIFT. PT HAS CONTINUED TO BE RESTLESS AND REPOSITION SELF, NO ATTEMPTS TO PULL OUT LINES/TUBES SINCE REMOVAL OF RESTRAINTS. WILL CONTINUE TO MONITOR AND REPORT OFF TO ONCOMING RN.
--- NOTE | 2018-07-18 07:20 | NUR ---
START OF SHIFT NOTE: PATIENT AWAKES TO SPEECH, OPENS EYES, ALERT AND ORIENTED, ABLE TO TELL ME HER NAME, AND WHERE SHE IS, DOES NOT KNOW WHAT HAPPENED AND WHY SHE IS IN THE HOSPITAL, REPORTS NO PAIN OR CHEST DISCOMFORT, VSS, AFEBRILE, STATES THAT SHE IS TIRED AND JUST NEEDS TO REST, BROADCAST OPERATIONS ENGINEER IS EQUALLY STRONG IN BOTH UPPER EXTREMITIES, NO FACIAL DROOP NOTED, CALL LIGHT IN REACH, WILL CONTINUE TO MONITOR.
--- NOTE | 2018-07-18 08:33 | NUR ---
DR. AGUILATRATE IN TO SEE PATIENT, NO NEW ORDERS RECEIVED.
--- NOTE | 2018-07-18 08:53 | NUR ---
RESTRAINTS HAVE BEEN DISCONTINUED, PATIENT IS ALERT AND ORIENTED THIS AM, AND COOPERATIVE WITH TREATMENT.
--- NOTE | 2018-07-18 10:57 | NUR ---
PATIEINT SITTING UP IN BED, BREAKFAST TRAY, ABLE TO SWALLOW ORDERED ORAL MEDICATION WITHOUT ANY PROBLEM, CALL LIGHT IN REACH, WILL CONTINUE TO MONITOR.
--- NOTE | 2018-07-18 11:30 | NUR ---
PATIENT NOW MEDICAL STATUS, WILL BE TRANSFERRED TO ROOM 354, REPORT CALLED TO DOUGLAS RAZO, WILL MOVE PATIENT TO ROOM 354 VIA WHEELCHAIR.
--- NOTE | 2018-07-18 12:07 | NUR ---
PATIENT TRANSFERRED TO ROOM 354 VIA WHEELCHAIR AND TWO ASSIST, TOLERATED WELL, ALL BELONGINGS WITH PATIENT.
--- NOTE | 2018-07-18 18:28 | NUR ---
SHIFT SUMMARY PT ARRIVED TO ROOM AT 1205. REPORT RECIEVED FROM DOUGLAS PARRA AT 1125. VSS THOUGH PT HYPERTENSIVE BUT NOT WITHIN PARAMETERS FOR PRN MEDICATION. PT HAS BEEN SLEEPING OFF AND ON SINCE SHE ARRIVED. PT DENIES PAIN. IV PATENT AND INFUSING. BED IN LOW POSITION, CALL LIGHT WITHIN REACH. PT AMBULATES WITH 1 ASSIST WITH GB AND FWW. BED ALARM ON. NO SEIZURE ACTIVITY THIS SHIFT.
--- NOTE | 2018-07-19 04:00 | NUR ---
SHIFT SUMMARY NO CHANGES THIS SHIFT. PT HAS RESTED MOST OF THE NIGHT, HAS NOT HAD ANY COMPLAINTS. NO SEIZURE ACTIVITY. SEIZURE PADS IN PLACE. IV KEPPRA INFUSED ORDERED. PT A/OX4, BUT IMPULSIVE. WILL USE CALL LIGHT, BUT IF NO ONE RESPONDS TO THE ROOM FAST ENOUGH PT WILL JUMP OUT OF BED BEFORE HELP ARRIVES. BED ALARM IN PLACE FOR SAFETY. ASSESSMENT AT BASELINE. WILL CONTINUE TO MONITOR AND REPORT TO ONCOMING RN.
[2018-07-19 04:41] LABS: BASOPHILS PERCENT AUTO 1 % (0-2); EOSINOPHILS ABSOLUTE AUTO 0.17 K/mm3 (0.00-0.68); EOSINOPHILS PERCENT AUTO 2 % (0-6); Hematocrit 39.4 % (33.0-51.0); Hemoglobin 13.6 g/dL (11.5-16.0); IMMATURE GRAN ABSOLUTE AUTO 0.04 K/mm3 (0.00-0.10); IMMATURE GRAN PERCENT AUTO 0 % (0-1); LYMPHOCYTES ABSOLUTE AUTO 2.25 K/mm3 (0.84-5.20); LYMPHOCYTES PERCENT AUTO 21 % (21-46); MONOCYTES ABSOLUTE AUTO 1.13 K/mm3 (0.16-1.47); MONOCYTES PERCENT AUTO 11 % (4-13); Mean Corpuscular HGB 33.3 pg (26.0-34.0); Mean Corpuscular HGB Conc 34.5 g/dL (31.5-36.5); Mean Corpuscular Volume 97 fL (80-100); NEUTROPHILS ABSOLUTE AUTO 6.92 K/mm3 (1.96-9.15); NEUTROPHILS PERCENT AUTO 65 % (41-73); RDW Standard Deviation 46.2 fL (35.1-46.3); Red Blood Cell Count 4.08 M/mm3 (3.80-5.20); White Blood Cell Count 10.61 K/mm3 (4.00-11.30)
[2018-07-19 04:50] LABS: Mean Platelet Volume 9.1 fL (9.1-12.4); Platelet Count 195 K/mm3 (150-400)
[2018-07-19 05:04] LABS: Albumin, Blood 3.3 g/dL (3.4-5.0); Anion Gap 10 mmol/L (6-16); Blood Urea Nitrogen 12 mg/dL (8-24); Bun/Creatinine Ratio 15.6 (12.0-20.0); CO2, Blood 21 mmol/L (21-32); Calcium, Blood 7.8 mg/dL (8.5-10.1); Chloride, Blood 107 mmol/L (98-108); Creatinine, Blood 0.77 mg/dL (0.40-1.00); Glomerular Filtration Rate >60 (60-); Glucose, Blood 87 mg/dL (70-99); Phosphorus, Blood 2.4 mg/dL (2.5-4.9); Potassium, Blood 3.8 mmol/L (3.5-5.5); Sodium, Blood 138 mmol/L (136-145)
--- NOTE | 2018-07-19 16:58 | NUR ---
SHIFT SUMMARY THE PATIENT PRESENTED THIS MORNING WITH VITALS WNL, A&O X4 AND WITH LUNGS THAT WERE DIMINISHED THROUGHOUT. THE PATIENT'S TELE WAS DC'ED ALONG WITH Q6 CHEM B/G'S. THE PATIENT HAS BEEN OUT TWICE TO SMOKE AND IS INDEPENDENT IN HER ROOM. THE PATIENT WILL MOST LIKELY BE DISCHARGED IN THE MORNING, PER DR. ESPARZA. THE PATIENT WILL NEED A NEURO EVAL AND A PALLETIVE CONSULT. THE PATIENT IS RESTING AT THIS TIME, WILL CONTINUE TO MONITOR.
--- NOTE | 2018-07-20 04:54 | NUR ---
*SHIFT SUMMARY* PATIENT IS ALERT AND ORIENTED. PATIENT STATES SHE IS EAGER TO BE DISCHARGED IN THE AM. PATIENT HAD NO COMPLAINTS OF PAIN OR SOB. PATIENT SLEPT THROUGHOUT THE NIGHT. PATIENT IS UP INDEPENDENT IN ROOM- BRP. CALL LIGHT WITHIN REACH, BED LOWERED AND LOCKED.
[2018-07-20 05:13] LABS: BASOPHILS ABSOLUTE AUTO 0.07 K/mm3 (0.00-0.23); BASOPHILS PERCENT AUTO 1 % (0-2); EOSINOPHILS ABSOLUTE AUTO 0.25 K/mm3 (0.00-0.68); EOSINOPHILS PERCENT AUTO 3 % (0-6); Hematocrit 38.5 % (33.0-51.0); Hemoglobin 13.4 g/dL (11.5-16.0); IMMATURE GRAN ABSOLUTE AUTO 0.03 K/mm3 (0.00-0.10); IMMATURE GRAN PERCENT AUTO 0 % (0-1); LYMPHOCYTES ABSOLUTE AUTO 1.35 K/mm3 (0.84-5.20); LYMPHOCYTES PERCENT AUTO 16 % (21-46); MONOCYTES ABSOLUTE AUTO 1.23 K/mm3 (0.16-1.47); MONOCYTES PERCENT AUTO 15 % (4-13); Mean Corpuscular HGB 33.8 pg (26.0-34.0); Mean Corpuscular HGB Conc 34.8 g/dL (31.5-36.5); Mean Corpuscular Volume 97 fL (80-100); Mean Platelet Volume 9.5 fL (9.1-12.4); NEUTROPHILS ABSOLUTE AUTO 5.45 K/mm3 (1.96-9.15); NEUTROPHILS PERCENT AUTO 65 % (41-73); Platelet Count 165 K/mm3 (150-400); RDW Standard Deviation 46.2 fL (35.1-46.3); Red Blood Cell Count 3.97 M/mm3 (3.80-5.20); White Blood Cell Count 8.38 K/mm3 (4.00-11.30)
[2018-07-20 05:43] LABS: Albumin, Blood 3.1 g/dL (3.4-5.0); Anion Gap 9 mmol/L (6-16); Blood Urea Nitrogen 15 mg/dL (8-24); Bun/Creatinine Ratio 18.8 (12.0-20.0); CO2, Blood 25 mmol/L (21-32); Calcium, Blood 7.9 mg/dL (8.5-10.1); Chloride, Blood 103 mmol/L (98-108); Glomerular Filtration Rate >60 (60-); Glucose, Blood 118 mg/dL (70-99); Magnesium, Blood 1.9 mg/dL (1.6-2.4); Phosphorus, Blood 3.2 mg/dL (2.5-4.9); Potassium, Blood 3.8 mmol/L (3.5-5.5); Sodium, Blood 137 mmol/L (136-145)
--- NOTE | 2018-07-20 07:54 | NUR ---
ASSUMED CARE OF PT- BEDSIDE REPORT COMPLETE. PLAN IS FOR PT TO POSSIBLY DISCHARGE HOME TODAY; PT STATED, DURING REPORT, SHE IS HOPEFULL TO BE ABLE TO DISCHARGE TODAY. PT IN BED CALL LIGHT IN REACH NO S&S OF PAIN, ANXIETY OR DISTRESS NOTED AT THIS TIME. WILL CONTINUE TO MONITOR. ALSO PER REPORT PT HAS HAD A SEX CHANGE OPERATION SHE IDENTIFIES FEMALE BUT WAS BORN PHYSICALLY MALE.
[2018-07-20] MEDS ORDERED: ATOR40TA PO (11:13)
[2018-07-20] MEDS ORDERED: ASPI81CH PO (11:13)
[2018-07-20] MEDS ORDERED: CLOP75 PO (11:13)
[2018-07-20] MEDS ORDERED: METO25ER PO (11:14)
[2018-07-20] MEDS ORDERED: ONDA4ODT MM (11:14)
[2018-07-20] MEDS ORDERED: LEVE500 PO (11:17)
--- NOTE | 2018-07-20 16:44 | NUR ---
DISCHARGE NOTE- PT DISCHARGED HOME TODAY, PROVIDED VERBAL AND WRITTEN DISCHARGE INSTRUCTIONS AND PT ACKNOWLEDGED UNDERSTANDING OF THEM. PT FRIENDS AT THE BEDSIDE AND PRESENT FOR DC TEACHING. PT HAD LARGE MATS IN HER HAIR WHICH SHE WAS TRYING TO REMOVE, STAFF SPENT CONCIDERABLE TIME ATTEMPTING TO REMOVE THEM PRIOR TO PT DISCHARGE. PT HAD NO FURTHER QUESTIONS AT THE TIME OF DISCHARGE AND WAS ESCORTED OUT VIA W/C BY DOUGLAS SOTO. IV DC'D PRIOR TO DISCHARGE.
== END 2018-07-20 13:23 | disposition home or self-care (01) | DRG 101 ==
LOC: ER 10:06 → ICUW 12:21 → EDBD 12:21 → ICUE 12:21 → MEDS 12:21 → ICUE 13:05 → MEDS 07-18 11:56
PROVIDERS: Emergency Medicine; Internal Medicine Critical Care Medicine; ADMIT Family Medicine
DX: G40.909 Epilepsy, unspecified, not intractable, without status epilepticus (principal); G93.49 Other encephalopathy; N17.9 Acute kidney failure, unspecified; E87.2 Acidosis; E87.1 Hypo-osmolality and hyponatremia; N18.3 Chronic kidney disease, stage 3 (moderate); Z23 Encounter for immunization; S00.212A Abrasion of left eyelid and periocular area, initial encounter; D72.829 Elevated white blood cell count, unspecified; E03.9 Hypothyroidism, unspecified; J44.9 Chronic obstructive pulmonary disease, unspecified; I25.10 Atherosclerotic heart disease of native coronary artery without angina pectoris; R73.9 Hyperglycemia, unspecified; I67.9 Cerebrovascular disease, unspecified; F64.0 Transsexualism; F17.210 Nicotine dependence, cigarettes, uncomplicated; W19.XXXA Unspecified fall, initial encounter; Y93.89 Activity, other specified; Y92.009 Unspecified place in unspecified non-institutional (private) residence as the place of occurrence of the external cause; Z87.890 Personal history of sex reassignment; Z87.11 Personal history of peptic ulcer disease; Z95.5 Presence of coronary angioplasty implant and graft
CPT/HCPCS: 36415; 36600; 51702; 70450; 71045; 80053; 80069; 81001; 82550; 82553; 82803; 82947; 83605; 83735; 84100; 84484; 85025; 85027; 85610; 90686; 93005; 93010; 96361; 96365; 96375; 97116; 97162; 97530; 99285-25; G0008; G0480; J1650; J1953; J2060; J2310; J7030

== ENCOUNTER 2018-09-06 11:21 | Inpatient (IN) | payer OTHER ==
[~2018-09-06] VITALS: Ht 154.9 cm; Wt 48.2 kg
[~2018-09-06 11:21] MED LIST changes: +ATOR40TA PO; +LEVE500 PO; +METO25ER PO; +ONDA4ODT MM
[2018-09-06 11:59] LABS: BASOPHILS PERCENT AUTO 1 % (0-2); EOSINOPHILS ABSOLUTE AUTO 0.01 K/mm3 (0.00-0.68); EOSINOPHILS PERCENT AUTO 0 % (0-6); Hematocrit 50.5 % (33.0-51.0); Hemoglobin 16.9 g/dL (11.5-16.0); IMMATURE GRAN ABSOLUTE AUTO 0.07 K/mm3 (0.00-0.10); IMMATURE GRAN PERCENT AUTO 1 % (0-1); LYMPHOCYTES ABSOLUTE AUTO 1.98 K/mm3 (0.84-5.20); LYMPHOCYTES PERCENT AUTO 14 % (21-46); MONOCYTES ABSOLUTE AUTO 0.79 K/mm3 (0.16-1.47); MONOCYTES PERCENT AUTO 6 % (4-13); Mean Corpuscular HGB 33.3 pg (26.0-34.0); Mean Corpuscular HGB Conc 33.5 g/dL (31.5-36.5); Mean Corpuscular Volume 99 fL (80-100); Mean Platelet Volume 9.8 fL (9.1-12.4); NEUTROPHILS ABSOLUTE AUTO 11.19 K/mm3 (1.96-9.15); NEUTROPHILS PERCENT AUTO 79 % (41-73); Platelet Count 265 K/mm3 (150-400); RDW Coefficient Variation 12.5 % (11.7-14.2); RDW Standard Deviation 46.4 fL (35.1-46.3); Red Blood Cell Count 5.08 M/mm3 (3.80-5.20); White Blood Cell Count 14.14 K/mm3 (4.00-11.30)
[2018-09-06 12:23] LABS: CPK Creatine Kinase 100 U/L (26-193); Troponin I <0.015 ng/mL (0.000-0.040)
[2018-09-06 12:32] LABS: Alanine Aminotransfer (ALT/SGP 18 U/L (12-78); Albumin/Globulin Ratio 1.1 (0.8-1.8); Alk Phos 122 U/L (50-136); Anion Gap 11 mmol/L (6-16); Aspartate Aminotrans (AST/SGOT 25 U/L (12-37); Bilirubin, Total 0.6 mg/dL (0.1-1.0); Blood Urea Nitrogen 13 mg/dL (8-24); Bun/Creatinine Ratio 14.9 (12.0-20.0); CO2, Blood 25 mmol/L (21-32); Calcium, Blood 9.5 mg/dL (8.5-10.1); Chloride, Blood 105 mmol/L (98-108); Creatinine, Blood 0.87 mg/dL (0.40-1.00); Globulin, Blood 3.7 g/dL (2.2-4.0); Glomerular Filtration Rate >60 (60-); Glucose, Blood 166 mg/dL (70-99); Potassium, Blood 6.2 mmol/L (3.5-5.5); Sodium, Blood 141 mmol/L (136-145); Total Protein, Blood 7.7 g/dL (6.4-8.2)
[2018-09-07 04:05] LABS: PCO2 Arterial 28.2 mmHg (35-45); PO2 Arterial 57.9 mmHg (80-100); pH Blood Arterial 7.43 (7.35-7.45)
--- NOTE | 2018-09-07 04:57 | NUR ---
RECIEVED REPORT FROM CHEKO COLE. SHE RELATES THAT PT HAD FALLEN IN ED PRIOR TO BEING ADMITTED. PT ARRIVED TO FLOOR AT 2240. INTAKE DONE AT THAT TIME. PT WAS SEDATED AND SLEEPY BUT ABLE TO BE AROUSED AND ANSWERE QUESTIONS CORECTLY. COMPLETED INTAKE AND PT WENT TO SLEEP. RECIEVED CALL FROM TELE MONITOR OF PT HR DIPPING AT TIMES INTO THE 30'S. CHECKED ON PT AND SHE WAS AROUSABLE AND HR CAME BACK UP INTO THE 60'S WHEN WOKEN UP AND MOVED. CONSULTED CHARGE AND CONTINUED TO MONITOR PT CLOSELY. HR CONTINUE TO DIP INTO 30'S. VITALS OBTAINED AT 0318 THEN CALL PLACED TO DR. LONG. HE CAME UP IMMEDIATELY TO EXAMINE PT. PT CONDITION HAD WORSENED AND WAS DIFFICULT TO AROUSE. HEAD CT WAS ORDERED AT [address] IMAGING GAVE REPORT TO DELICIA TAMAYO SAUSAGE MIXER. PT TRANSFERED TO ICU AFTER CT HEAD.
[2018-09-07 05:18] LABS: Anion Gap 15 mmol/L (6-16); Blood Urea Nitrogen 9 mg/dL (8-24); Bun/Creatinine Ratio 15.8 (12.0-20.0); CO2, Blood 17 mmol/L (21-32); Chloride, Blood 101 mmol/L (98-108); Creatinine, Blood 0.57 mg/dL (0.40-1.00); Glomerular Filtration Rate >60 (60-); Glucose, Blood 249 mg/dL (70-99); Potassium, Blood 3.3 mmol/L (3.5-5.5); Sodium, Blood 133 mmol/L (136-145)
[2018-09-07 05:24] LABS: Calcium, Blood 7.3 mg/dL (8.5-10.1)
[2018-09-07 05:38] LABS: PCO2 Arterial 29.4 mmHg (35-45); PO2 Arterial 209 mmHg (80-100); pH Blood Arterial 7.43 (7.35-7.45)
[2018-09-07 05:42] LABS: Source, Urine Catheter
[2018-09-07 05:44] LABS: BASOPHILS ABSOLUTE AUTO 0.04 K/mm3 (0.00-0.23); BASOPHILS PERCENT AUTO 0 % (0-2); EOSINOPHILS PERCENT AUTO 0 % (0-6); Hematocrit 34.3 % (33.0-51.0); Hemoglobin 12.1 g/dL (11.5-16.0); IMMATURE GRAN PERCENT AUTO 1 % (0-1); LYMPHOCYTES ABSOLUTE AUTO 0.86 K/mm3 (0.84-5.20); LYMPHOCYTES PERCENT AUTO 5 % (21-46); MONOCYTES ABSOLUTE AUTO 0.77 K/mm3 (0.16-1.47); MONOCYTES PERCENT AUTO 5 % (4-13); Mean Corpuscular HGB 34.1 pg (26.0-34.0); Mean Corpuscular HGB Conc 35.3 g/dL (31.5-36.5); Mean Corpuscular Volume 97 fL (80-100); Mean Platelet Volume 9.6 fL (9.1-12.4); NEUTROPHILS ABSOLUTE AUTO 14.49 K/mm3 (1.96-9.15); NEUTROPHILS PERCENT AUTO 89 % (41-73); NRBC ABSOLUTE 0.02 K/mm3 (0.00-0.02); NRBC Auto 0.1 /100 WBC (0.0-0.2); Platelet Count 257 K/mm3 (150-400); RDW Coefficient Variation 12.3 % (11.7-14.2); Red Blood Cell Count 3.55 M/mm3 (3.80-5.20); White Blood Cell Count 16.26 K/mm3 (4.00-11.30)
[2018-09-07 05:59] LABS: Appearance, Urine Clear (Clear); Bilirubin, Urine Neg (Neg); Blood, Urine 2+ (Neg); Color, Urine Yellow (P-Yellow); Glucose Qualitative, Urine 4+ (Neg); Ketones, Urine 3+ (Neg); Leukocyte Esterase, Urine Neg (Neg); Nitrite, Urine Neg (Neg); Protein, Urine 1+ (Neg); Urobilinogen, Urine NORM (Normal); pH, Urine 6.5 (5.0-8.0)
[2018-09-07 06:17] LABS: Bacteria Not Seen /hpf; Red Blood Cells, Urine 0-2 /hpf (0-2); Squamous Epithelial Cells Few /hpf (Few); White Blood Cells, Urine Not Seen /hpf (0-5)
--- NOTE | 2018-09-07 07:24 | NUR ---
0405- NOTIFIED BY NURSING BULL WHEEL WORKER REGARDING EMERGENT TRANSFER FROM MEDICAL FLOOR DUE TO BRADICARDIA. 0410- WENT UP TO MEDICAL FLOOR TO ASSIST WITH TRANSPORT TO UNIT. PT WAS UNRESPONSIVE TO VERBAL STIMULI EXCEPT POSTERING TO UPPER EXT NOTED. PT TAKEN FOR HEAD CT. HEMATOMA NOTED TO RIGHT TEMPORAL. CALL TO NURSING BULL WHEEL WORKER REGARDING NEURO CHANGES AND FOR CALL TO DR LONG. 0415- PT ARRIVED TO ICU ROOM 9. MOVED TO BED BY STAFF. DR LONG AT BEDSIDE. PUPILS FIXED, NEGATIVE DOLLS EYES. CALL OUT TO DR DUNLAP FOR EMERGENT CONSULT. DR CORONA CALLED FOR INTUBATION. DR LONG WANTING PT TRANSFED TO [facility]. NURSING BULL WHEEL WORKER VADIM CALLING REGARDING AIR TRANSPORT. DR LONG CALLING [facility]. ATTEMPTS MADE TO REACH NYA RUSSELL (LIFE PARTNER) BOTH NUMBERS ON CHART DISCONNECTED. 0420- UNABLE TO OBTAIN BP. NS BOLUS STARTED. PT WITH BRADICARDIA. LUNGS COARSE, RT ASSISTING WITH BVM. 0425- PANG CATH PLACED BY WILLIAM AMANDA RN WHILE WAITING FOR DR CORONA. DR LONG AT BEDSIDE. DR CORONA INTUBATED PT WITH 8.0 ET TUBE, 22 CM AT LIP. PT PRE MED WITH ETOM 20 MG AND SUCC. BILAT BREATH SOUNDS NOTED. COLOR CHANGE NOTED WITH BAGGING. VENT SETTINGS AC 16 TV 400 PEEP 5 FIO2 100%. LUNGS COARSE. RT SUCTIONED AND SAMPLE SENT TO LAB. 0430- MANUAL BP 180/60. 0433- MANUAL BP 192/70. 0440- NEW IV 20G PLACED TO LEFT HAND BY WILLIAM AMANDA RN. 0445- RT WITHDREW ET TUBE TO 24 AT LIP POST CHEST XRAY. DR LONG HAD US HOLD OG TUBE DUE TO SUBDURAL HEMATOMA AFTER REVIEWING CT WITH RAD. 0448- DCSD NOTIFIED BY NURSING BULL WHEEL WORKER TO ATTEMPT TO FIND FAMILY. 0454- PT RECEIVING FIRST UNIT PLT. 0511- DR DUNLAP HERE VENT SETTINGS AC 25 TV 400 PEEP 5 FIO2 100%. PUPILS FIXED WITH SLIGHT MOVEMENT NOTED TO RIGHT HAND AND FOOT. 0514- SECOND UNIT PLT STARTED. 0530- NS BOLUS COMPLETE. LR AT 75 ML/HR STARTED PER VERBAL ORDER BY DR DUNLAP. 0541- MANNITOL STARTED. ABG REVIEWED BY DR DUNLAP. FIO2 DECREASED TO 30% BY RT. 06- DR DUNLAP CONFIRMED "FULL CODE" STATUS. STILL UNABLE TO REACH FAMILY. 0630- DR LONG AT BEDSIDE. NO NEW ORDERS. PT HAVING POSTERING. NONRESPONSIVE TO STIMULI. 0700- BEDSIDE REPORT GIVEN TO TOMASA CLINE RN.
--- NOTE | 2018-09-07 08:53 | NUR ---
0510-ASSUMED CARE OF PT. PT IS UNRESPONSIVE. NO DOLL'S EYES MOVEMENT. NOTED TO HAVE DECORTICATE POSTURING. PUPILS ARE FIXED WITH 5MM DILATION. NOTED TO HAVE SLIGHT BABINSKI REFLEX. SLIGHT MYCLONIC JERKS NOTED. DOES NOT FOLLOW COMMANDS. 5396-TALKED TO DR. EDEN REGARDING PT'S CONDITION.
--- NOTE | 2018-09-07 10:46 | NUR ---
STILL NO FAMILY AROUND. UNABLE TO GET A HOLD OF NYA RUSSELL, SIGNIFICANT OTHER. DIALED THE NUMBER [phone] TWICE. NO ONE IS ANSWERING THE CALL. THIS PHONE NUMBER WAS FROM [facility]. NO OTHER WORKING PHONE NUMBERS EXCEPT FOR THE ONE MENTIONED ABOVE. DOUGLAS TRAYLORAVIATION MECHANIC IS ALSO TRYING TO CONTACT ANY FAMILY. PER REPORT FROM NIGHT RN, POLICE DEPARTMENT WAS ASKED TO LOCATE PT'S SIGNIFICANT OTHER (NYA RUSSELL)
--- NOTE | 2018-09-07 11:43 | NUR ---
1133-CONTACTED THE NON-EMERGENT POLICE DISPATCH TO FIND PT'S SIGNIFICANT OTHER NYA RUSSELL.
--- NOTE | 2018-09-07 12:16 | NUR ---
PT'S SIGNIFICANT OTHER NYA IS AT BEDSIDE AT THIS TIME. DR. EDEN IS TALKING TO THEM WELL.
--- NOTE | 2018-09-07 13:35 | NUR ---
CONTACTED PT'S MOTHER MICHELLE MCKAY AFTER GETTING THE NUMBER FROM PT'S Chayo FAY. UPDATED HER OF PT'S STATUS. CONTACTED PT'S BROTHER STONEY WELL. STONEY WAS ABLE TO TALK DR. EDEN REGARDING PT'S PROGNOSIS.
--- NOTE | 2018-09-07 14:00 | NUR ---
PT'S SYSTOLIC BLOOD PRESSURE > 200. MEDICATED PT WITH HYDRALAZINE ORDERED.
--- NOTE | 2018-09-07 14:25 | NUR ---
PT'S BP STILL ELEVATED > 200 DESPITE HYDRALAZINE IV. PT IS TACHYCARDIC 120s-130s. HAD SOME BIGEMINY NOTED BEFORE TACHYCARDIA. DR. EDEN WAS NOTIFIED REGARDING THESE SYMPTOMS. ORDERS RECEIVED.
--- NOTE | 2018-09-07 14:50 | NUR ---
Per admit trigger, I was to meet with Arabella to discuss Advanced Directive. she is ventilated and non-responsive. No family present. Per RN, she is not doing well. Clearly, this is not an appropritate tme for this conversation.
--- NOTE | 2018-09-07 15:33 | NUR ---
BLOOD PRESSURE DROPPED INTO THE 30s-40s. DR. EDEN WAS NOTIFIED. DR. EDEN WAS ALSO INFORMED PUPILS ARE UNEQUAL AND NON-REACTIVE. LEFT PUPIL IS 4MM SIZE AND R PUPIL 5MM SIZE. NO GAG, NO COUGH, NO SWALLOW, NO CORNEAL REFLEX.
--- NOTE | 2018-09-07 15:40 | NUR ---
PT'S FAMILY & SIGNIFICANT OTHER WERE NOTIFIED OF PT'S DECLINING CONDITION. DR. EDEN HAS BEEN AWARE OF PT'S DECLINING STATUS. NO ORDERS RECEIVED.
--- NOTE | 2018-09-07 16:58 | NUR ---
Met with pt's SO Tres, and family friend. Tres was tearful and barely spoke. He was inconsolable. Sat bedside him and held his hand. Asked about advent preference and prayer. Tres declined. Pt's mom and brother arriving from [place] this afternoon. Arabella was non-responsive. I will remain available to this family.
--- NOTE | 2018-09-07 18:01 | NUR ---
PT'S MOTHER MICHELLE AND BROTHER STONEY AT BEDSIDE. DR. EDEN CAME BY TO SEE PT'S FAMILY AND TALKED TO THEM. PT'S S.O. IS AT BEDSIDE WELL. FAMILY DECIDED TO MAKE PATIENT COMFORT CARE.
--- NOTE | 2018-09-07 18:37 | NUR ---
PT WAS EXTUBATED PER FAMILY'S WISH TO MAKE PT COMFORT CARE. PT WAS EXTUABTED @ 1830.
--- NOTE | 2018-09-07 18:37 | NUR ---
Pt's family is gathered and life support withdrawn. Family is struggling with the loss of their member. Mother is in the hospital but wasn't able to handle staying. Family is now at bedside, wanting to spend some more moments with her. Withdrawal of care was smooth, pt very soon after extubation, did not have one chest rise. Will remain available.
--- NOTE | 2018-09-07 18:58 | NUR ---
PT @ 1854. NO HEART BEAT, NO RESPIRATIONS. DR. EDEN & DR. MART WAS NOTIFIED OF THE TIME OF .
--- NOTE | 2018-09-07 19:15 | NUR ---
PT'S S.O. HAS STATED THAT PT HAS EXPRESSED IN THE PAST THAT SHE DOES NOT WANT TO BE A DONOR.
== END 2018-09-07 18:54 | DRG 100 ==
LOC: ER 11:21 → ICUW 15:03 → ERHOLD 15:03 → MEDS 22:42 → ICUW 22:47
PROVIDERS: Emergency Medicine; Hospitalist; Internal Medicine Critical Care Medicine; ADMIT Hospitalist
PROC: 0BH17EZ Insertion of Endotracheal Airway into Trachea, Via Natural or Artificial Opening (ICD-10-PCS; principal; 2018-09-06)
PROC: 5A1935Z Respiratory Ventilation, Less than 24 Consecutive Hours (ICD-10-PCS; 2018-09-06)
DX: G40.401 Other generalized epilepsy and epileptic syndromes, not intractable, with status epilepticus (principal); G92 Toxic encephalopathy; R40.20 Unspecified coma; Z51.5 Encounter for palliative care; I10 Essential (primary) hypertension; Z87.890 Personal history of sex reassignment; Z95.5 Presence of coronary angioplasty implant and graft; E03.9 Hypothyroidism, unspecified; I25.10 Atherosclerotic heart disease of native coronary artery without angina pectoris; E87.5 Hyperkalemia; D72.829 Elevated white blood cell count, unspecified; Z79.01 Long term (current) use of anticoagulants; Z79.82 Long term (current) use of aspirin; Z66 Do not resuscitate; E86.0 Dehydration; W19.XXXA Unspecified fall, initial encounter; K21.9 Gastro-esophageal reflux disease without esophagitis; E78.5 Hyperlipidemia, unspecified; F17.210 Nicotine dependence, cigarettes, uncomplicated
CPT/HCPCS: 31500; 31720; 36415; 36430; 36600; 51702; 70450; 71045; 80048; 80053; 81001; 82550; 82803; 84132; 84484; 85025; 86900; 86901; 87070; 87205; 93005; 93010; 94002; 94003; 94762; 96365; 96372-59; 96375; 96376; 99285-25; J0330; J0360; J1170; J1650; J1953; J2060; J2150; J2250; J7030; J7120; P9033; P9037